=== PATIENT | female | born 1980 | race Caucasian/White ===

== ENCOUNTER 2021-01-23 17:51 | Emergency (ER) | payer OTHER ==
[2021-01-23] MEDS ORDERED: NORCO 5-325 TA1 EACH PO (18:49)
== END 2021-01-23 19:05 | disposition home or self-care (01) ==
LOC: FER 17:51
DX: S93.401A Sprain of unspecified ligament of right ankle, initial encounter (principal); Z91.030 Bee allergy status; W17.2XXA Fall into hole, initial encounter; Y93.K1 Activity, walking an animal
CPT/HCPCS: 73610